=== PATIENT | male | born 1965 | race Two or more races ===

== ENCOUNTER → 2017-09-17 | Outpatient (CLI) | payer OTHER | END | disposition home or self-care (01) | LOC: PPHC 16:59 | DX: G57.82 Other specified mononeuropathies of left lower limb (principal); I73.9 Peripheral vascular disease, unspecified; Z00.00 Encounter for general adult medical examination without abnormal findings ==

== ENCOUNTER → 2017-10-12 13:26 | Outpatient (CLI) | payer OTHER | END | disposition home or self-care (01) | LOC: LAB 13:26 | DX: I73.9 Peripheral vascular disease, unspecified (principal); D51.0 Vitamin B12 deficiency anemia due to intrinsic factor deficiency; M10.00 Idiopathic gout, unspecified site ==

== ENCOUNTER 2017-10-13 15:11 | Outpatient (CLI) | payer OTHER | END 2017-10-13 17:03 | disposition home or self-care (01) | LOC: MRI 15:11 | DX: G31.89 Other specified degenerative diseases of nervous system (principal) | CPT/HCPCS: 72141; 72146; 72148 ==

== ENCOUNTER 2018-05-17 12:02 | Outpatient (CLI) | payer OTHER ==
[~2018-05-17] VITALS: Ht 177.8 cm; Wt 87.1 kg
== END 2018-05-17 12:25 | disposition home or self-care (01) ==
LOC: OFIC 805 12:02
DX: R12 Heartburn (principal); R49.0 Dysphonia; K21.0 Gastro-esophageal reflux disease with esophagitis; H61.23 Impacted cerumen, bilateral

== ENCOUNTER 2018-07-18 15:55 | Outpatient (CLI) | payer OTHER ==
[~2018-07-18] VITALS: Ht 152.4 cm; Wt 87.1 kg
== END 2018-07-18 16:10 | disposition home or self-care (01) ==
LOC: OFIC 805 15:55
DX: R49.0 Dysphonia (principal); K21.0 Gastro-esophageal reflux disease with esophagitis; R12 Heartburn; H61.23 Impacted cerumen, bilateral

== ENCOUNTER 2018-07-31 10:16 | Outpatient (CLI) | payer OTHER | END 2018-07-31 12:45 | disposition home or self-care (01) | LOC: LAB 10:16 | DX: R19.7 Diarrhea, unspecified (principal); K21.9 Gastro-esophageal reflux disease without esophagitis; Z86.010 Personal history of colon polyps; Z80.0 Family history of malignant neoplasm of digestive organs; E78.2 Mixed hyperlipidemia; Z13.29 Encounter for screening for other suspected endocrine disorder; N40.0 Benign prostatic hyperplasia without lower urinary tract symptoms ==

== ENCOUNTER 2018-08-10 11:02 | Outpatient (CLI) | payer OTHER | END 2018-08-10 11:16 | disposition home or self-care (01) | LOC: NUCLEAR 11:02 | DX: I20.9 Angina pectoris, unspecified (principal) | CPT/HCPCS: 78452; 93017; A9500 ==

== ENCOUNTER 2018-08-25 14:15 | Outpatient (CLI) | payer OTHER ==
[~2018-08-25] VITALS: Ht 152.4 cm; Wt 87.1 kg
[2018-08-31] MEDS ORDERED: ZANTAC150 MG PO (13:53)
[2018-08-31] MEDS ORDERED: PROTONIX40 MG PO (13:53)
[2018-08-31] MEDS ORDERED: FLONASE16 GM (13:53)
== END 2018-08-25 14:30 | disposition home or self-care (01) ==
LOC: OFIC 805 14:15
DX: K21.9 Gastro-esophageal reflux disease without esophagitis (principal); R49.0 Dysphonia; R12 Heartburn; J06.0 Acute laryngopharyngitis

== ENCOUNTER → 2018-08-25 17:52 | Outpatient (CLI) | payer OTHER | END | disposition home or self-care (01) | LOC: LAB 17:47 | DX: J39.2 Other diseases of pharynx (principal); D37.05 Neoplasm of uncertain behavior of pharynx ==

== ENCOUNTER 2018-08-26 13:11 | Outpatient (CLI) | payer OTHER | END 2018-08-26 13:16 | disposition home or self-care (01) | LOC: RAD 13:11 | DX: D37.05 Neoplasm of uncertain behavior of pharynx (principal) ==

== ENCOUNTER 2018-08-26 13:34 | Outpatient (CLI) | payer OTHER | END 2018-08-26 14:33 | disposition home or self-care (01) | LOC: EKG 13:34 | DX: D37.05 Neoplasm of uncertain behavior of pharynx (principal) ==

== ENCOUNTER 2018-08-31 14:48 | Outpatient (CLI) | payer OTHER ==
[~2018-08-31 14:48] MED LIST: FLONASE16 GM; PROTONIX40 MG PO; ZANTAC150 MG PO
== END 2018-08-31 17:00 | disposition home or self-care (01) ==
LOC: MRI 14:48
DX: H53.451 Other localized visual field defect, right eye (principal); R51 Headache; D37.05 Neoplasm of uncertain behavior of pharynx
CPT/HCPCS: 70542; 70552

== ENCOUNTER 2018-09-02 07:05 | Day surgery (SDC) | payer OTHER | END 2018-09-02 13:40 | disposition home or self-care (01) | LOC: CIR.AMB 07:05 | DX: D10.7 Benign neoplasm of hypopharynx (principal) ==

== ENCOUNTER 2018-09-15 15:48 | Outpatient (CLI) | payer OTHER ==
[~2018-09-15] VITALS: Ht 152.4 cm; Wt 87.1 kg
== END 2018-09-15 16:10 | disposition home or self-care (01) ==
LOC: OFIC 805 15:48
DX: C13.9 Malignant neoplasm of hypopharynx, unspecified (principal)